=== PATIENT | male | born 1975 | race Caucasian/White ===

== ENCOUNTER 2018-06-16 21:30 | Emergency (ER) | payer OTHER ==
[~2018-06-16] VITALS: Ht 162.6 cm; Wt 79.4 kg
== END 2018-06-17 02:19 | disposition home or self-care (01) ==
LOC: ER 21:30
DX: B34.9 Viral infection, unspecified (principal)

== ENCOUNTER 2025-09-16 08:00 | Outpatient (CLI) | payer OTHER ==
[~2025-09-16] VITALS: Ht 152.4 cm; Wt 5.0 kg
== END 2025-09-16 08:10 | disposition home or self-care (01) ==
LOC: RAD 08:00 → SURH 09-24 10:30 → EDSTATUS 09-24 10:30 → SURH 09-24 20:30
PROVIDERS: ATTEND Colon & Rectal Surgery
DX: K57.20 Diverticulitis of large intestine with perforation and abscess without bleeding (principal); K92.1 Melena; I10 Essential (primary) hypertension

== ENCOUNTER 2025-09-23 15:35 | Inpatient (IN) | payer OTHER ==
[~2025-09-23] VITALS: Ht 165.1 cm; Wt 61.2 kg
[2025-09-23] MEDS ORDERED: METRONIDAZOLE/SODIUM CHLORIDE 500 MG/100 ML PIGGYBACK IV ONE (17:30)
[2025-09-23] MEDS ORDERED: 0.9 % SODIUM CHLORIDE 1,000 ML IV ONE (17:30)
[2025-09-23] MEDS ORDERED: CIPROFLOXACIN IN 5 % DEXTROSE 400 MG/200 ML PIGGYBAG IV ONE (17:30)
[2025-09-23] MEDS ORDERED: FAMOTIDINE/PF 20 MG/2 ML VIAL IV ONE (17:30)
[2025-09-23 18:49] LABS: BASO % 0.6 % (0.1-1.2); EOS # 0.01 (0.04-0.54); EOS % 0.1 % (0.7-7.0); LYMPH # 0.90 (1.18-3.74); LYMPH % 8.1 % (19.3-53.1); MEAN PLATELET VOLUME 8.80 fl (9.4-12.4); MONO # 0.90 (0.24-0.82); MONO % 8.1 % (4.7-12.5); NEUT # 9.19 (1.56-6.13); NEUT % 82.5 % (34.0-71.1); RED CELL DISTRIBUTION WIDTH 14.2 % (11.6-14.4)
[2025-09-23 19:07] LABS: INR 1.33
[2025-09-23 19:14] LABS: ALT/SGPT 9.0 U/L (12-78); AST/SGOT 12.0 U/L (15-37); BILIRUBIN TOTAL 0.64 mg/dL (0.3-1.2); BUN CREA RATIO 18.0 (7.0-25.0); CREATININE SERUM 0.6 mg/dL (0.70-1.30); GFR 142.61; GLOBULINA 5.0 G/DL (2.4-3.5); GLUCOSE FASTING 125.0 mg/dL (65-100); OSMOLALITY SERUM 269.0 MOSM/KG (275-295)
[2025-09-23 19:39] LABS: ERYTHROCYTE SEDIMENTATION RATE > 130 mm/hr (0-15)
[2025-09-23 19:56] LABS: URINE APPEARANCE Cloudy; URINE BILIRRUBIN Small (NEGATIVE); URINE BLOOD Large; URINE COLOR Dark Yellow; URINE GLUCOSE Negative (NEGATIVE); URINE KETONE 15 (NEGATIVE); URINE LEUKOCYTE Moderate; URINE NITRATE Negative; URINE UROBILINOGEN 1.0 E.U./dl
[2025-09-23 20:00] LABS: URINE BACTERIA 394.7 uL (0.0-1933); URINE CAST 3.37 uL (0.0-1.40); URINE EPITHELIAL CELLS 4.9 uL (0.0-38.8); URINE RBC 111.3 uL (0.0-20.8); URINE WBC 2118.4 uL (0.0-23.2)
[2025-09-23 20:09] LABS: BAND MAN 4.0 %; LYMPHOCYTE MAN 9.0 %; MONOCYTE MAN 7.0 %; NEUTROPHILS MAN 80.0 %
[2025-09-23 20:18] LABS: URINE PROTEIN 100 (NEGATIVE)
[2025-09-23] MEDS ORDERED: DEXTROSE 5 % AND 0.9 % NACL 1,000 ML IV SCH (20:30)
[2025-09-23] MEDS ORDERED: ENOXAPARIN SODIUM 40 MG/0.4 ML SYRINGE SUBCUTANEO SCH (20:39)
[2025-09-23] MEDS ORDERED: ONDANSETRON HCL 2 MG/ML VIAL IV PRN (20:45)
[2025-09-23] MEDS ORDERED: MORPHINE SULFATE 4 MG/ML CARTRIDGE IV PRN (20:45)
[2025-09-23] MEDS ORDERED: FAMOTIDINE/PF 20 MG/2 ML VIAL IV SCH (21:00)
[2025-09-23] MEDS ORDERED: VANCOMYCIN HCL 1,000 MG VIAL IV SCH (21:00)
[2025-09-24] MEDS ORDERED: MEROPENEM 500 MG/VIAL VIAL IV SCH ×2 (01:00→20:00)
[2025-09-24 02:41] LABS: BASO % 0.3 % (0.1-1.2); EOS # 0.01 (0.04-0.54); EOS % 0.1 % (0.7-7.0); LYMPH # 1.42 (1.18-3.74); LYMPH % 12.4 % (19.3-53.1); MEAN PLATELET VOLUME 8.70 fl (9.4-12.4); MONO # 1.24 (0.24-0.82); MONO % 10.8 % (4.7-12.5); NEUT # 8.68 (1.56-6.13); NEUT % 75.9 % (34.0-71.1); RED CELL DISTRIBUTION WIDTH 14.4 % (11.6-14.4)
[2025-09-24 02:51] LABS: BUN CREA RATIO 17.0 (7.0-25.0); CREATININE SERUM 0.54 mg/dL (0.70-1.30); GFR 161.05; GLUCOSE FASTING 107.0 mg/dL (65-100); OSMOLALITY SERUM 273.0 MOSM/KG (275-295)
[2025-09-24 07:57] VITALS: BP 107/69; O2SAT 98
[2025-09-24] MEDS ORDERED: LACTOBACILLUS ACIDOPHILUS 1 CAP CAP PO SCH (09:00)
[2025-09-24] MEDS ORDERED: THIAMINE HCL 100 MG/ML 2 ML VIAL IV SCH (09:00)
[2025-09-24] MEDS ORDERED: SOD FERRIC GLUC COMPLX/SUCROSE 62.5 MG in 0.9 % SODIUM CHLORIDE 50 ML IV SCH (09:00)
[2025-09-24] MEDS ORDERED: MULTIVIT INFUSN,ADULT 4,VIT K 10 ML VIAL IV SCH (09:00)
[2025-09-24] MEDS ORDERED: VANCOMYCIN HCL 1,000 MG VIAL ONE (14:15)
[2025-09-24 16:35] VITALS: BP 120/76; O2SAT 97
[2025-09-24] MEDS ORDERED: AA 4.25%/CALCIUM/LYTES/DEX 10% 1,000 ML CENTRAL SCH (17:00)
[2025-09-24] MEDS ORDERED: fentaNYL CITRATE 50 MCG/ML AMPUL IV PUSH ONE (20:30)
[2025-09-24] MEDS ORDERED: MIDAZOLAM HCL 2 MG/2 ML VIAL IV PUSH ONE (20:30)
[2025-09-24 22:24] VITALS: BP 129/76; O2SAT 98
[2025-09-24 23:52] VITALS: BP 116/66; O2SAT 95
[2025-09-25] MEDS ORDERED: VANCOMYCIN HCL 1,000 MG VIAL ONE (06:57)
[2025-09-25 08:09] VITALS: BP 100/55; O2SAT 96
[2025-09-26 00:30] VITALS: BP 119/74; O2SAT 99
[2025-09-26 07:41] VITALS: BP 107/65; O2SAT 99
[2025-09-26] MEDS ORDERED: SODIUM CHLORIDE 0.45 % 1,000 ML IV SCH (09:45)
[2025-09-26] MEDS ORDERED: MORPHINE SULFATE 4 MG/ML CARTRIDGE IV PRN (11:45)
[2025-09-26] MEDS ORDERED: ACETAMINOPHEN 500 MG GEL..CAP PO PRN (11:45)
[2025-09-26] MEDS ORDERED: GABAPENTIN 300 MG CAPSULE PO PRN (14:30)
[2025-09-26 16:00] VITALS: BP 114/70; O2SAT 99
[2025-09-27] VITALS: BP 118/77; O2SAT 99
[2025-09-27 06:20] LABS: BASO % 0.5 % (0.1-1.2); EOS # 0.19 (0.04-0.54); EOS % 3.1 % (0.7-7.0); LYMPH # 1.66 (1.18-3.74); LYMPH % 26.8 % (19.3-53.1); MEAN PLATELET VOLUME 8.80 fl (9.4-12.4); MONO # 0.55 (0.24-0.82); MONO % 8.9 % (4.7-12.5); NEUT # 3.72 (1.56-6.13); NEUT % 60.1 % (34.0-71.1); RED CELL DISTRIBUTION WIDTH 14.3 % (11.6-14.4)
[2025-09-27 06:49] LABS: ERYTHROCYTE SEDIMENTATION RATE 87 mm/hr (0-15)
[2025-09-27 07:04] LABS: ALT/SGPT 10.0 U/L (12-78); AST/SGOT 13.0 U/L (15-37); BILIRUBIN TOTAL 0.34 mg/dL (0.3-1.2); BUN CREA RATIO 14.0 (7.0-25.0); CREATININE SERUM 0.37 mg/dL (0.70-1.30); GFR 249.14; GLOBULINA 3.8 G/DL (2.4-3.5); GLUCOSE FASTING 136.0 mg/dL (65-100); OSMOLALITY SERUM 284.0 MOSM/KG (275-295)
[2025-09-27 07:57] VITALS: BP 102/67; O2SAT 98
[2025-09-27] MEDS ORDERED: VANCOMYCIN HCL 5 MG/ML REDILUIDO IV SCH (09:00)
[2025-09-27 16:14] VITALS: BP 114/72; O2SAT 100
[2025-09-27] MEDS ORDERED: MELATONIN 5 MG TABLET PO SCH (21:00)
[2025-09-27 23:58] VITALS: BP 124/77; O2SAT 99
[2025-09-28] MEDS ORDERED: PIPERACILLIN/TAZOBACTAM SODIUM 3.375 GM in 0.9 % SODIUM CHLORIDE 100 ML IV SCH
[2025-09-28 08:16] VITALS: BP 144/79; O2SAT 99
[2025-09-28 09:06] VITALS: BP 144/79; O2SAT 97
[2025-09-28 16:37] VITALS: BP 112/74; O2SAT 100
[2025-09-29 00:01] VITALS: BP 117/72; O2SAT 99
[2025-09-29 08:16] VITALS: BP 100/65; O2SAT 97
[2025-09-29 16:13] VITALS: BP 116/74; O2SAT 98
[2025-09-30 00:49] VITALS: BP 114/75; O2SAT 98
[2025-09-30 06:59] LABS: BASO % 0.5 % (0.1-1.2); EOS # 0.14 (0.04-0.54); EOS % 1.7 % (0.7-7.0); LYMPH # 1.86 (1.18-3.74); LYMPH % 23.2 % (19.3-53.1); MEAN PLATELET VOLUME 8.70 fl (9.4-12.4); MONO # 0.59 (0.24-0.82); MONO % 7.4 % (4.7-12.5); NEUT # 5.33 (1.56-6.13); NEUT % 66.6 % (34.0-71.1); RED CELL DISTRIBUTION WIDTH 14.9 % (11.6-14.4)
[2025-09-30 07:05] LABS: ERYTHROCYTE SEDIMENTATION RATE 111 mm/hr (0-15)
[2025-09-30 07:23] LABS: INR 1.13
[2025-09-30 07:41] LABS: ALT/SGPT 15.0 U/L (12-78); AST/SGOT 13.0 U/L (15-37); BILIRUBIN TOTAL 0.4 mg/dL (0.3-1.2); BILIRUBIN,CONJUGATED 0.17 mg/dL (0.0-0.2); BUN CREA RATIO 17.0 (7.0-25.0); CHOL HDL RATIO 4.8 (0-5.0); CREATININE SERUM 0.54 mg/dL (0.70-1.30); GFR 161.05; GLOBULINA 4.2 G/DL (2.4-3.5); GLUCOSE FASTING 99.0 mg/dL (65-100); HDL 20.0 mg/dl (40-60); LDL 50.0 mg/dl (0-130); OSMOLALITY SERUM 278.0 MOSM/KG (275-295); VLDL 24.0 (0-39)
[2025-09-30 08:15] LABS: UREA CLEARANCE 41.1 ML/MIN
[2025-09-30] MEDS ORDERED: HYOSCYAMINE SULFATE 0.125 MG TAB.SUBL SL PRN (08:45)
[2025-09-30 16:40] VITALS: BP 104/75; O2SAT 98
[2025-10-01] MEDS ORDERED: MORPHINE SULFATE 4 MG/ML CARTRIDGE IV PRN (00:45)
[2025-10-01 01:15] VITALS: BP 108/71; O2SAT 98
[2025-10-01] MEDS ORDERED: DIATRIZOATE MEGLUMINE, SODIUM 30 ML BOTTLE PO ONE (06:00)
[2025-10-01 06:53] LABS: BASO % 0.7 % (0.1-1.2); EOS # 0.17 (0.04-0.54); EOS % 2.8 % (0.7-7.0); LYMPH # 2.23 (1.18-3.74); LYMPH % 37.0 % (19.3-53.1); MEAN PLATELET VOLUME 8.60 fl (9.4-12.4); MONO # 0.51 (0.24-0.82); MONO % 8.5 % (4.7-12.5); NEUT # 3.03 (1.56-6.13); NEUT % 50.3 % (34.0-71.1); RED CELL DISTRIBUTION WIDTH 15.0 % (11.6-14.4)
[2025-10-01 07:57] VITALS: BP 96/64; O2SAT 98
[2025-10-01 16:00] VITALS: BP 127/85; O2SAT 99
[2025-10-01] MEDS ORDERED: FAT EMULSIONS 250 ML IV SCH (21:00)
[2025-10-02 00:36] VITALS: BP 109/71; O2SAT 98
[2025-10-02 08:09] VITALS: BP 105/65; O2SAT 98
[2025-10-02] MEDS ORDERED: INTESTINEX680 M1 PO (10:45)
[2025-10-02] MEDS ORDERED: FUSION PLUS CA1 EACH PO (10:45)
[2025-10-02] MEDS ORDERED: METRONIDAZOLE500 MG PO (10:45)
[2025-10-02] MEDS ORDERED: ABANEU-SL TABL1 EACH SL (10:45)
[2025-10-02] MEDS ORDERED: GABAPENTIN300 MG PO (10:45)
[2025-10-02] MEDS ORDERED: VITAMIN B-1100 MG PO (10:45)
[2025-10-02] MEDS ORDERED: HYOSCYAMINE0.125 M1 SL (10:45)
[2025-10-02] MEDS ORDERED: MULTI-VITAMIN1 EACH PO (10:45)
[2025-10-02] MEDS ORDERED: FAMOTIDINE20 MG PO (10:45)
[2025-10-02] MEDS ORDERED: MELATONIN10 M2 PO (10:45)
== END 2025-10-02 15:06 | disposition home or self-care (01) | DRG 391 ==
LOC: ER 15:36 → SURG 20:55 → SEC-K 20:55 → SURG 23:20
PROVIDERS: General Practice; ADMIT Internal Medicine Geriatric Medicine; ATTEND Internal Medicine Geriatric Medicine
PROC: BW21YZZ Computerized Tomography (CT Scan) of Abdomen and Pelvis using Other Contrast (ICD-10-PCS; principal; 2025-09-23)
PROC: 0W9G3ZZ Drainage of Peritoneal Cavity, Percutaneous Approach (ICD-10-PCS; 2025-09-24)
PROC: 02HV33Z Insertion of Infusion Device into Superior Vena Cava, Percutaneous Approach (ICD-10-PCS; 2025-09-25)
PROC: BW21YZZ Computerized Tomography (CT Scan) of Abdomen and Pelvis using Other Contrast (ICD-10-PCS; 2025-10-01)
DX: K57.32 Diverticulitis of large intestine without perforation or abscess without bleeding (principal); A41.9 Sepsis, unspecified organism; K65.1 Peritoneal abscess; K63.2 Fistula of intestine; D72.829 Elevated white blood cell count, unspecified; D69.6 Thrombocytopenia, unspecified; D64.9 Anemia, unspecified; B96.20 Unspecified Escherichia coli [E. coli] as the cause of diseases classified elsewhere; F43.21 Adjustment disorder with depressed mood

== ENCOUNTER 2025-11-06 09:15 | Inpatient (IN) | payer OTHER ==
[~2025-11-06] VITALS: Ht 152.4 cm; Wt 54.9 kg
[~2025-11-06 09:15] MED LIST: ABANEU-SL TABL1 EACH SL; FAMOTIDINE20 MG PO; FUSION PLUS CA1 EACH PO; GABAPENTIN300 MG PO; HYOSCYAMINE0.125 M1 SL; INTESTINEX680 M1 PO; MELATONIN10 M2 PO; METRONIDAZOLE500 MG PO; MULTI-VITAMIN1 EACH PO; VITAMIN B-1100 MG PO
[2025-11-12] MEDS ORDERED: METRONIDAZOLE/SODIUM CHLORIDE 500 MG/100 ML PIGGYBACK IV ONE (07:18)
[2025-11-12] MEDS ORDERED: CEFTRIAXONE SODIUM 2,000 MG VIAL ONE (07:19)
[2025-11-12] MEDS ORDERED: CEFTRIAXONE SODIUM 1,000 MG VIAL ONE (07:20)
[2025-11-12] MEDS ORDERED: BUPIVACAINE HCL/Mpf 0.5% 10ML VIAL ONE (10:13)
[2025-11-12] MEDS ORDERED: LIDOCAINE HCL 1%/EPINEPHRINE 20ML VIAL IJ ONE (10:14)
[2025-11-12] MEDS ORDERED: CHLORHEXIDINE GLUCONATE 120 ML BOTTLE TOP ONE (10:57)
[2025-11-12] MEDS ORDERED: KETOROLAC TROMETHAMINE 60 MG VIAL IM ONE (12:10)
[2025-11-12] MEDS ORDERED: ONDANSETRON HCL 2 MG/ML VIAL IV PRN (16:45)
[2025-11-12] MEDS ORDERED: MORPHINE SULFATE 4 MG/ML VIAL IV PRN (16:45)
[2025-11-12] MEDS ORDERED: RINGERS SOLUTION,LACTATED 1,000 ML IV SCH (16:45)
[2025-11-12] MEDS ORDERED: OxyCODONE HCL 5 MG TABLET (ROXICODONE) PO PRN (16:45)
[2025-11-12] MEDS ORDERED: SIMETHICONE 125 MG CAPSULE PO ONE (16:55)
[2025-11-12] MEDS ORDERED: METOCLOPRAMIDE HCL 5 MG/ML VIAL ONE (16:55)
[2025-11-12] MEDS ORDERED: GABAPENTIN 300 MG CAPSULE PO ONE (16:56)
[2025-11-12] MEDS ORDERED: HYOSCYAMINE SULFATE 0.125 MG TAB.SUBL ONE (16:56)
[2025-11-12] MEDS ORDERED: CELECOXIB 200 MG CAPSULE PO ONE (16:56)
[2025-11-12] MEDS ORDERED: GABAPENTIN 300 MG CAPSULE PO SCH (17:00)
[2025-11-12] MEDS ORDERED: CELECOXIB 200 MG CAPSULE PO SCH (17:00)
[2025-11-12] MEDS ORDERED: METOCLOPRAMIDE HCL 5 MG/ML VIAL IV SCH (17:00)
[2025-11-12] MEDS ORDERED: HYOSCYAMINE SULFATE 0.125 MG TAB.SUBL SL SCH (17:00)
[2025-11-12] MEDS ORDERED: SIMETHICONE 125 MG CAPSULE PO SCH (17:00)
[2025-11-12 17:35] VITALS: BP 151/92; O2SAT 100
[2025-11-12 17:49] LABS: BASO % 0.4 % (0.1-1.2); EOS # 0.01 (0.04-0.54); EOS % 0.1 % (0.7-7.0); LYMPH # 0.59 (1.18-3.74); LYMPH % 7.6 % (19.3-53.1); MEAN PLATELET VOLUME 9.00 fl (9.4-12.4); MONO # 0.35 (0.24-0.82); MONO % 4.5 % (4.7-12.5); NEUT # 6.78 (1.56-6.13); NEUT % 87.3 % (34.0-71.1); RED CELL DISTRIBUTION WIDTH 15.5 % (11.6-14.4)
[2025-11-12] MEDS ORDERED: PIPERACILLIN/TAZOBACTAM SODIUM 3.375 GM in DEXTROSE 5 % IN WATER 100 ML IV SCH (18:00)
[2025-11-12] MEDS ORDERED: VANCOMYCIN HCL 1,000 MG VIAL ONE (19:08)
[2025-11-12] MEDS ORDERED: ACETAMINOPHEN 500 MG GEL..CAP PO SCH (20:00)
[2025-11-12] MEDS ORDERED: VANCOMYCIN HCL 1,000 MG VIAL IV SCH (21:00)
[2025-11-12] MEDS ORDERED: FAMOTIDINE/PF 20 MG/2 ML VIAL IV PUSH SCH (21:00)
[2025-11-12 21:30] VITALS: BP 130/85
[2025-11-13] VITALS: BP 120/76; O2SAT 99
[2025-11-13 07:14] LABS: BASO % 0.3 % (0.1-1.2); EOS # 0.03 (0.04-0.54); EOS % 0.4 % (0.7-7.0); LYMPH # 1.11 (1.18-3.74); LYMPH % 14.9 % (19.3-53.1); MEAN PLATELET VOLUME 8.80 fl (9.4-12.4); MONO # 0.62 (0.24-0.82); MONO % 8.3 % (4.7-12.5); NEUT # 5.66 (1.56-6.13); NEUT % 75.8 % (34.0-71.1); RED CELL DISTRIBUTION WIDTH 15.4 % (11.6-14.4)
[2025-11-13 07:53] LABS: BUN CREA RATIO 9.0 (7.0-25.0); CREATININE SERUM 0.65 mg/dL (0.70-1.30); GFR 130.03; GLUCOSE FASTING 94.0 mg/dL (65-100); OSMOLALITY SERUM 277.0 MOSM/KG (275-295)
[2025-11-13 08:00] VITALS: BP 107/68; O2SAT 98
[2025-11-13] MEDS ORDERED: VANCOMYCIN HCL 1,000 MG VIAL ONE ×2 (08:21→15:04)
[2025-11-13] MEDS ORDERED: LACTULOSE 20 G/30 ML BLIST.PACK PO SCH (09:00)
[2025-11-13] MEDS ORDERED: LACTOBACILLUS ACIDOPHILUS 1 CAP CAP PO SCH (09:00)
[2025-11-13 15:58] VITALS: BP 123/76; O2SAT 99
[2025-11-13] MEDS ORDERED: ENOXAPARIN SODIUM 40 MG/0.4 ML SYRINGE SUBCUTANEO SCH (17:00)
[2025-11-14 00:41] VITALS: BP 144/87; O2SAT 98
[2025-11-14] MEDS ORDERED: VANCOMYCIN HCL 1,000 MG VIAL ONE ×2 (06:38→14:54)
[2025-11-14 07:26] LABS: BASO % 0.3 % (0.1-1.2); EOS # 0.02 (0.04-0.54); EOS % 0.2 % (0.7-7.0); LYMPH # 1.32 (1.18-3.74); LYMPH % 11.6 % (19.3-53.1); MEAN PLATELET VOLUME 9.20 fl (9.4-12.4); MONO # 0.74 (0.24-0.82); MONO % 6.5 % (4.7-12.5); NEUT # 9.21 (1.56-6.13); NEUT % 81.1 % (34.0-71.1); RED CELL DISTRIBUTION WIDTH 15.6 % (11.6-14.4)
[2025-11-14 07:52] LABS: BUN CREA RATIO 12.0 (7.0-25.0); CREATININE SERUM 0.74 mg/dL (0.70-1.30); GFR 111.95; GLUCOSE FASTING 101.0 mg/dL (65-100); OSMOLALITY SERUM 278.0 MOSM/KG (275-295)
[2025-11-14] MEDS ORDERED: ENOXAPARIN SODIUM 40 MG/0.4 ML SYRINGE SUBCUTANEO SCH (09:00)
[2025-11-14 09:12] VITALS: BP 133/88; O2SAT 98
[2025-11-14] MEDS ORDERED: POTASSIUM CHLORIDE 20MEQ/100ML H2O PB IV NR (10:00)
[2025-11-14 16:01] VITALS: BP 150/81; O2SAT 98
[2025-11-14] MEDS ORDERED: MELATONIN 5 MG TABLET PO SCH (21:00)
[2025-11-15 00:30] VITALS: BP 149/90; O2SAT 96
[2025-11-15] MEDS ORDERED: DEXTROSE 5%-WATER 100ML IV.SOLN ONE ×3 (07:01→13:17)
[2025-11-15] MEDS ORDERED: VANCOMYCIN HCL 1,000 MG VIAL ONE ×2 (07:01→15:02)
[2025-11-15 08:00] VITALS: BP 129/82; O2SAT 97
[2025-11-15 16:08] VITALS: BP 143/84; O2SAT 99
[2025-11-16] VITALS: BP 150/80; O2SAT 97
[2025-11-16] MEDS ORDERED: VANCOMYCIN HCL 1,000 MG VIAL ONE ×2 (06:50→15:36)
[2025-11-16 08:00] VITALS: BP 155/87; O2SAT 97
[2025-11-16 09:24] LABS: BASO % 0.3 % (0.1-1.2); EOS # 0.18 (0.04-0.54); EOS % 1.9 % (0.7-7.0); LYMPH # 1.53 (1.18-3.74); LYMPH % 16.4 % (19.3-53.1); MEAN PLATELET VOLUME 9.20 fl (9.4-12.4); MONO # 0.74 (0.24-0.82); MONO % 7.9 % (4.7-12.5); NEUT # 6.83 (1.56-6.13); NEUT % 73.3 % (34.0-71.1); RED CELL DISTRIBUTION WIDTH 15.2 % (11.6-14.4)
[2025-11-16 10:01] LABS: BUN CREA RATIO 22.0 (7.0-25.0); CREATININE SERUM 0.58 mg/dL (0.70-1.30); GFR 148.3; GLUCOSE FASTING 78.0 mg/dL (65-100); OSMOLALITY SERUM 278.0 MOSM/KG (275-295)
[2025-11-16 16:30] VITALS: BP 146/81; O2SAT 98
[2025-11-17 00:13] VITALS: BP 133/75; O2SAT 97
[2025-11-17] MEDS ORDERED: VANCOMYCIN HCL 1,000 MG VIAL ONE ×2 (06:50→14:47)
[2025-11-17 17:20] VITALS: BP 138/73; O2SAT 97
[2025-11-18 02:38] VITALS: BP 144/76; O2SAT 99
[2025-11-18] MEDS ORDERED: VANCOMYCIN HCL 1,000 MG VIAL ONE (07:26)
[2025-11-18 08:00] VITALS: BP 158/84; O2SAT 97
[2025-11-18] MEDS ORDERED: TAMSULOSIN HCL 0.4 MG CAP PO NR (12:30)
== END 2025-11-18 15:36 | disposition home or self-care (01) | DRG 330 ==
LOC: O/R 11-12 06:00 → SURH 11-12 06:00
PROVIDERS: Internal Medicine Geriatric Medicine; ADMIT Colon & Rectal Surgery; ATTEND Colon & Rectal Surgery
PROC: 0DBP4ZZ Excision of Rectum, Percutaneous Endoscopic Approach (ICD-10-PCS; 2025-11-12)
PROC: 0TQB3ZZ Repair Bladder, Percutaneous Approach (ICD-10-PCS; 2025-11-12)
PROC: 0WUF47Z Supplement Abdominal Wall with Autologous Tissue Substitute, Percutaneous Endoscopic Approach (ICD-10-PCS; 2025-11-12)
PROC: 0DTN4ZZ Resection of Sigmoid Colon, Percutaneous Endoscopic Approach (ICD-10-PCS; principal; 2025-11-12 11:00)
PROC: BW2GZZZ Computerized Tomography (CT Scan) of Pelvic Region (ICD-10-PCS; 2025-11-16)
DX: K57.20 Diverticulitis of large intestine with perforation and abscess without bleeding (principal); K56.7 Ileus, unspecified; N32.1 Vesicointestinal fistula; K91.89 Other postprocedural complications and disorders of digestive system; K66.0 Peritoneal adhesions (postprocedural) (postinfection); D64.89 Other specified anemias; R00.0 Tachycardia, unspecified; E87.6 Hypokalemia